=== PATIENT | female | born 1985 | race Caucasian/White ===

== ENCOUNTER → 2016-03-31 | Day surgery (SDC) | payer OTHER ==
--- NOTE | 2016-03-30 17:59 | MH ---
cc: JANA PRECIADO DATE OF ADMISSION: 03/31/2016 ADMITTING DIAGNOSIS demise at 9-10 weeks. HISTORY OF PRESENT ILLNESS The patient is a 31-year-old white female para 1-0-3-1 with an LMP uncertain. Ultrasound at 6 weeks gave her EDC of 09/2016. course has been benign. Ultrasound on 03/30/2016 showed demise at 9-10 weeks. She is now admitted for D&C. PAST OBSTETRICAL HISTORY She had a left ectopic removed in March,, term delivery 2014, spontaneous August, at 12 weeks, and spontaneous at 5-6 weeks December,. MEDICATIONS 1. Vitamins. 2. Folic acid. 3. Baby aspirin. 4. Progesterone. ALLERGIES PENICILLIN. TRANSFUSIONS None. ADDITIONAL SURGERY Right shoulder in 2000 and third molars. SOCIAL HISTORY , employed. Alcohol, tobacco and drugs are none. PHYSICAL EXAMINATION GENERAL: This is a well-nourished, well-developed, white female. VITAL SIGNS: Vital signs stable. HEENT: Exam is normal. CHEST: Chest is clear. HEART: Regular rate. BREASTS: Breasts are symmetrical. ABDOMEN: Abdomen is benign. PELVIC EXAM: Normal external genitalia and BUS. Vagina is normal. Cervix normal. The uterus is 9 weeks' size. ASSESSMENT As above. PLAN She is now admitted for D&C. While in the office, I explained the procedures, the risks, benefits and complications, the patient would like to proceed. MD AMADOU Ferrera/LAILAF /5:25 PM /5:39 PM
[~2016-03-31] VITALS: Ht 157.5 cm; Wt 59.2 kg
[~2016-03-31] MED LIST: ACETAMINOPHEN 1000 MG/100 ML VIAL IV SCH; APREPITANT 40 MG CAP ONE; ASPI1TAB69 PO; CLINDAMYCIN 600 MG/NS 100 ML IV SCH; DEXAMETHASONE SOD PHOS 4 MG/ML VIAL ONE; DOXY10TA PO; FAMOTIDINE 20 MG/2 ML VIAL ONE; INSULIN HUMAN REGULAR 1,000 UNITS/10 ML VIAL SQ PRN; KETOROLAC TROMETHAMINE 60 MG/2 ML (IM) VIAL IM ONE; LACTATED RINGER'S 1000 ML IV SCH; METOCLOPRAMIDE HCL 10 MG/2 ML VIAL IV PRN; METOPROLOL TARTRATE 25 MG TAB PO PRN; MIDAZOLAM HCL 2 MG/2 ML VIAL ONE; ONDANSETRON HCL 4 MG/2 ML VIAL ONE; OXYTOCIN 10 UNIT/ML AMP IV ONE; OXYTOCIN 10 UNIT/ML AMP ONE; PROG100C PO; PROPOFOL 200 MG/20 ML AMP IV ONE; SODIUM CHLORID 0.9% 500 ML IV SCH; SODIUM CHLORIDE 0.9% INJ 100 ML ONE; fentaNYL CITRATE 250 MCG/5 ML AMP ONE; oxyCODONE/ACETAMINOPHEN 5 MG/325 MG TAB PO PRN
[2016-03-31 06:02] VITALS: BP 105/69; PULSE 84; RESP 16; TEMP 97.9; O2SAT 96
[2016-03-31 08:52] VITALS: BP 112/68; PULSE 80; RESP 16; TEMP 98.3; O2SAT 98
--- NOTE | 2016-04-02 20:25 | MP ---
cc: JANA PRECIADO M.D. DATE OF SURGERY: 03/31/2016 PREOPERATIVE DIAGNOSIS: demise at 9 to 10 weeks gestation. POSTOPERATIVE DIAGNOSIS: demise at 9 to 10 weeks gestation. OPERATIVE PROCEDURE PERFORMED: A suction and sharp D&C. SURGEON: Jana Preciado MD. ANESTHESIA General LMA. ESTIMATED BLOOD LOSS: About 200 cc. FLUIDS: About 700 cc of crystalloid. DESCRIPTION OF THE PROCEDURE IN DETAIL/OBJECTIVE FINDINGS: Follow the induction of adequate general LMA anesthesia, the patient was prepped and draped supine on the operating table in the dorsal lithotomy position in the usual sterile fashion with the bladder being drained by in and out catheterization. Exam under anesthesia revealed a 9 to 0-week sized uterus. No adnexal masses. A heavy weighted speculum was placed at the vagina and the anterior lip of the cervix grasped with single-tooth tenaculum. Cervix and uterus sounded to 8 cm with a soft dilator and then to a #18 Hanks dilator. A #8 suction curette was used to remove tissue followed by a medium sharp curette and then a suction curette passed again to miner pick debris. The instruments were removed. The tenaculum site was sutured 3-0 chromic. The uterus now contracted down to six weeks size. The counts were correct. The patient was taken out of [facility]. She was awake and taken to the recovery room in good condition. MD AMADOU Ferrera/JCOleg /7:42 AM /8:20 PM MTDD
== END | disposition home or self-care (01) ==
LOC: HSDC 05:27
PROVIDERS: ATTEND Obstetrics & Gynecology
DX: O02.1 Missed abortion (principal)
CPT/HCPCS: 01965; 59820; 88305; J0131; J1100; J1885; J2250; J2405; J2590; J3010; J7120; J8501